=== PATIENT | male | born 1995 | race Caucasian/White ===

== ENCOUNTER 2017-01-27 22:23 | Inpatient (IN) | payer MEDICAID ==
[~2017-01-27] VITALS: Ht 182.9 cm; Wt 127.0 kg
--- NOTE | 2017-01-27 22:32 | NUR ---
PT BACK TO LOBBY WITH FAMILY.
--- NOTE | 2017-01-27 23:28 | NUR ---
RECEIVED PT FROM TRIAGE FOR C/C DIZZINESS. PT STATES THAT AROUND 2100 HE DRANK SOME WATER THAT TASTED FUNNY AFTER PLAYING BASKETBALL IN THE [place]ARK. PT STATES THAT HE IS DIZZINESS AND CANT SEE RIGHT, HE SEE MULTIPLE OF PEOPLE. PT IS A/O X4, SPEECH CLEAR, AND FOLLOWS COMMANDS. PT PLACED ON LAST IRONER AND VS STABLE. WILL CONTINUE TO MONITOR.
[2017-01-28 00:16] LABS: BASOPHIL % 0.4 % (0-2); PLATELET COUNT 351 x10^3mcL (130-400); RED CELL DISTRIBUTION WIDTH 12.8 % (11.5-14.5)
[2017-01-28 00:32] LABS: CALCIUM 9.3 mg/dL (8.5-10.1); CARBON DIOXIDE 25.8 mmol/L (21-32); CHLORIDE SERUM 106 mmol/L (98-107); CREATININE SERUM 1.3 mg/dL (0.7-1.3); GFR1 > 60 mL/min; GLUCOSE SERUM 124 mg/dL (74-106); POTASSIUM SERUM 3.9 mmol/L (3.5-5.1); SODIUM SERUM 145 mmol/L (136-145)
[2017-01-28 00:55] LABS: ALBUMIN 4.4 g/dL (3.4-5.0); ALKALINE PHOSPHATASE 87 U/L (46-116); ALT/SGPT 98 U/L (16-63); AST/SGOT 39 U/L (15-37); BILIRUBIN TOTAL 0.2 mg/dL (0.20-1.00)
[2017-01-28 00:59] LABS: AMPHETAMINE QUAL UR NONE DETECTED (NEG <=1000)
[2017-01-28 01:00] LABS: CHOLESTEROL 249 mg/dL (<200); TOTAL PROTEIN, SERUM 8.5 g/dL (6.4-8.2)
--- NOTE | 2017-01-28 02:38 | NUR ---
REPORT GIVEN TO TRE ACUNA. ALL QUESTIONS AND CONCERNS ADDRESSED AT THIS TIME.
[2017-01-28 02:42] LABS: MAGNESIUM 1.7 mg/dL (1.8-2.4); PHOSPHOROUS 3.4 mg/dL (2.5-4.9)
[2017-01-28 02:47] LABS: FREE T4 0.95 ng/dL (0.76-1.46); FREE THYROXINE INDEX 2.7 ug/dL (1.4-4.5); T4(THYROXINE) 8.2 ug/dL (4.7-13.3)
[2017-01-28 03:03] LABS: T3 TOTAL 1.53 ng/mL
--- NOTE | 2017-01-28 04:27 | NUR ---
RECEIVED PT FROM ER, PT ADMIT FOR ALOC, LEUKOCYTOSIS IS A/O X4, VERBAL RESPONSIVE, ABLE TO TELL WHAT HE NEEDS, STIL C/O LITTLE DIZZINESS, LUNG SOUND CLEAR BILATERAL, NO COUGH, NO SOB, PT IS ON TELE 24, NSR, DENY ANY CHEST PAIN OR DISCOMFORT, BOWEL SOUND PRESENT ALL 4 QUADRANTS, NO DISTENTION, NO TENDER. PEDAL PULSE PRESENT BOTH FEET, NO EDEMA, IV AT LEFT AC, NO LEAKING, NO INFILTRATION. ALL ADLS ASSIST, ALL NEED MET, CALL LIGHT IN REACH, WILL CONTINUE TO MONITOR.
[2017-01-28 04:54] LABS: UA SPECIFIC GRAVITY >=1.030 (1.005-1.035); microscopic required? YES; urine erythrocyte 1+ (NEGATIVE)
[2017-01-28 05:29] VITALS: BP 98/56
--- NOTE | 2017-01-28 05:30 | NUR ---
REPORT TO DR. RADER REGARDING PT LATIC ACID AND WBC, ASKED IF PT START SEPSIS PROTOCAL. DR. RADER MADE AWARE, STATE HE IS WORKING ON IT. WILL CONTINUE TO MONTOR THE PT.
--- NOTE | 2017-01-28 06:34 | NUR ---
PT IS SLEEPING, NO S/S OF RESPIRATORY DISTRESS, NO S/S OF PAIN OR DISCOMFORT, IV AT LEFT AC, NO LEAKING, NO INFILTRAITON. ALL ADLS ASSIST, ALL NEED MET, CALL LIGHT IN REACH, WILL CONTINUE TO MONITOR.
--- NOTE | 2017-01-28 07:00 | NUR ---
GIRLFRIEND AT BEDSIDE.RESTING IN BED, AROUSABLE TO LIGHT NOISE, ABLE TO VERBALIZE NEEDS WITH CLEAR SPEECH, PERRLA, FOLLOWS SIMPLE COMMANDS, DENIES VISUAL OR HEARING CHANGES, DENIES HALLUCINATIONS, ON TELE #24 NSR ON MONITOR, DENIES ANY HEART RELATED PAIN OR DISCOMFORT, IV AT LAC INFUSING NS AT 200ML/HR, CALL LIGHT WITHIN REACH, WILL CONTINUE TO PROVIDE CARE.
[2017-01-28 09:05] VITALS: BP 101/37
--- NOTE | 2017-01-28 11:16 | NUR ---
PATIENT'S BROTHER AT BEDSIDE REQUESTING UPDATE, PATIENT DOES NOT WANT RN TO ANSWER BROTHER'S QUESTIONS.
[2017-01-28 13:02] VITALS: BP 102/48
--- NOTE | 2017-01-28 13:19 | NUR ---
PT CONSIDERING LEAVING AMADR MAHAJAN AT BEDSIDE TO PROVIDE EDUCATION, PATIENT AND BROTHER VERBALIZED UNDERSTANDING, PT WILL STAY IN HOSPITAL FOR CONTINUED TREATMENT.
--- NOTE | 2017-01-28 15:20 | NUR ---
REQUESTING ORDER FOR OUTSIDE FOOD, DR MAHAJAN AT NURSING STATION, WOULD LIKE TO KEEP ACCURATE CONTROL OF PO INTAKE 2/2 PT BEING PREDIABETIC, PATIENT MADE AWARE OF DR MAHAJAN'S DECISION, VERBALIZED UNDERSTANDING.
[2017-01-28 17:32] VITALS: BP 107/45
--- NOTE | 2017-01-28 19:16 | NUR ---
SITTING UP IN BED, AAOX4 PERRLA, DENIES DIZZINESS OR PIERSON, ABLE TO FOLLOW COMMANDS, HAS TOLERATED MEALS WITHOUT GI DISTRESS, IV MAGNESIUM INFUSED ORDERED, DENIES DYSURIA OR RETENTION, NO OTHER SIGNIFICANT CHANGES NOTED, CARE ENDORSED TO NIGHT NURSE.
--- NOTE | 2017-01-28 19:50 | NUR ---
REC'D PT FROM DAY NURSE. GIRLFRIEND AT BEDSIDE. AAOX4, SPEECH CLEAR, FOLLOWS COMMANDS. NO SIGNS OF DISTRESS NOTED. BREATHING EVEN/UNLABORED ON RA. ON TELE 37. DENIES CP, DIZZINESS, OR PALPITATIONS. NO EDEMA NOTED. DENIES ABD PAIN, TENDERNESS, OR N/V. VOIDING FREELY. AMUBLATORY. SKIN INTACT. DENIES PAIN OR DISCOMFORT AT THIS TIME. INFORMATION ON PREDIABETES GIVEN INCLUDING DISEASE PROCESS, PREVENTION, TREATMENT, AND COMPLICATIONS. PT VERBALIZED UNDERSTANDING AND QUESTIONS WERE ANSWERED. CALL LIGHT WITHIN REACH, BED AT LOWEST POSITION. WILL CONTINUE TO MONITOR.
--- NOTE | 2017-01-28 21:40 | NUR ---
PT STATES HE WOULD LIKE TO GO HOME. SAYS HE "FEELS BETTER AND DOESN'T KNOW WHAT [HE] NEEDS TO BE HERE." INFORMED PT OF RIGHT TO AMA BUT ALSO INFORMED OF IMPORTANCE OF STAYING. PT VERBALIZED UNDERSTANDING BUT SAYS HE WOULD STILL LIKE TO LEAVE. INFORMED DR. RADER. STATES HE WILL GO IN TO SPEAK TO THE PT.
--- NOTE | 2017-01-28 21:51 | NUR ---
DR. RADER IN TO SPEAK TO PT. STATES HE NEEDS SOME TIME TO THINK ABOUT LEAVING AMA.
[2017-01-28 21:57] VITALS: BP 103/56
--- NOTE | 2017-01-28 22:26 | NUR ---
AMA PAPERWORK SIGNED. IV ACCESS AND TELE REMOVED. ALL BELONGINGS WITH PT.
== END 2017-01-28 23:20 | disposition left against medical advice (07) | DRG 422 ==
LOC: ED 22:23 → DU 01-28 01:34
PROVIDERS: Specialist; ADMIT Family Medicine
DX: E86.0 Dehydration (principal); N17.0 Acute kidney failure with tubular necrosis; N39.0 Urinary tract infection, site not specified; E83.42 Hypomagnesemia; F12.10 Cannabis abuse, uncomplicated; E78.5 Hyperlipidemia, unspecified; R74.0 Nonspecific elevation of levels of transaminase and lactic acid dehydrogenase [LDH]
CPT/HCPCS: 82962; 83880; 84439; G0480; J0696; J3475; J7030; Q0092